=== PATIENT | female | born 1980 | race Caucasian/White ===

== ENCOUNTER 2018-03-25 15:52 | Emergency (ER) | payer BC, SELFPAY ==
[2018-03-25 17:20] LABS: Absolute Lymphocytes (CBC) 1.2 K/uL (0.7-4.9); Absolute Monocytes 0.5 K/uL (0.1-1.3); Absolute Neutrophil 6.8 K/uL (1.8-8.0); Basophils % 0.2 % (0-1.3); Hematocrit 27.8 % (36.0-45.0); Lymphocytes % 13.1 % (15.3-44.8); MPV 8.9 fL (7.6-11.3); Monocytes % 5.5 % (3.3-12.3); RBC Red Blood Cell Count 3.12 M/uL (3.86-4.86)
[2018-03-25] MEDS ORDERED: PANTOPRAZOLE 40 MG INJ ONE (17:22)
[2018-03-25 17:44] LABS: ALT/SGPT 15 U/L (12-78); AST/SGOT 10 U/L (15-37); Albumin 3.1 g/dL (3.4-5.0); Alkaline Phosphatase 56 U/L (45-117); BUN Blood Urea Nitrogen 8 mg/dL (7-18); Bicarbonate 29 mmol/L (21-32); Bilirubin Direct 0.1 mg/dL (0-0.2); Bilirubin Total 0.3 mg/dL (0.2-1.0); Glucose Level 103 mg/dL (74-106); Lipase 66 U/L (73-393); Potassium 4.1 mmol/L (3.5-5.1); Protein, Total 5.9 g/dL (6.4-8.2); Sodium Level 143 mmol/L (136-145)
--- NOTE | 2018-03-25 18:24 | RAD REPORT ---
EXAM DESCRIPTION: CTAbdomen Pelvis W Contrast - 03/25/2018 6:10 pm CLINICAL HISTORY: Abdominal pain. hematemesis, gastric bypass COMPARISON: No comparisons TECHNIQUE: Biphasic CT imaging of the abdomen and pelvis was performed with 100 ml non-ionic IV cont rast. All CT scans are performed using dose optimization technique as appropriate and may include automated exposure control or mA/KV adjustment according to patient size. FINDINGS: The lung bases are clear.Cholecystectomy clips. Mild fatty liver is present. The spleen, pancreas, adrenal glands and kidneys are within normal limit s. Postsurgical changes of gastric bypass noted. No bowel obstruction, free air, free fluid or abscess. Sigmoid diverticulosis without diverticulitis. The appendix is normal. No evidence of significant lymphadenopathy. No suspicious bony findings. IUD is present in the uterus. IMPRESSION: No acute intra-abdominal or pelvic finding.
[2018-03-25 18:30] LABS: Urine Blood NEGATIVE (NEG); Urine Glucose NEGATIVE (NEG); Urine Protein NEGATIVE (NEG); Urine Specific Gravity 1.015 (1.005-1.030)
[2018-03-25] MEDS ORDERED: ONDANSETRON 4 MG/2 ML VIAL ONE (18:59)
[2018-03-25] MEDS ORDERED: Ringers Lactate 1,000 ML IV ONE (18:59)
[2018-03-25] MEDS ORDERED: PROMETHAZINE 25 MG/ML VIAL ONE (19:59)
--- NOTE | 2018-03-25 21:15 | EDPHYS ---
Physician Documentation [facility] Name: Erica Westbrook Age: 37 yrs Sex: Female : 1980 Arrival Date: 03/25/2018 Time: 15:54 Bed 14 Private MD: Tomas Garvin T; Janak Ramírez M ED Physician Omi Jones HPI: 03/25 16:26 This 37 yrs old Female presents to ER via Ambulatory with complaints of jmm Vomiting Blood. 16:26 The patient presents to the emergency department with vomiting. Onset: The jmm symptoms/episode began/occurred just prior to arrival. 16:26 Possible causes: flare up of bowel problem, ulcer. jmm 16:26 Associated signs and symptoms: Pertinent negatives: abdominal pain, shortness of jmm breath. This is a 37 year old female with a history of a yohan en y bypass performed in 2012 presents to the ED with vomiting bright red blood. Similar episode 3 weeks ago and was diagnosed with a gastric ulcer. Patient denies abdominal pain. Denies weakness. Denies diarrhea. Denies dark stools. . 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 - Social history:: Smoking status: Patient/guardian denies using tobacco. - Ebola Screening: : Patient negative for fever greater than or equal to 101.5 degrees Fahrenheit, and additional compatible Ebola Virus Disease symptoms Patient denies exposure to infectious person Patient denies travel to an Ebola-affected area in the 21 days before illness onset No symptoms or risks identified at this time. ROS: 16:26 Constitutional: Negative for fever, chills, and weight loss, Eyes: Negative for injury, jmm pain, redness, and discharge, ENT: Negative for injury, pain, and discharge, Neck: Negative for injury, pain, and swelling, Cardiovascular: Negative for chest pain, palpitations, and edema, Respiratory: Negative for shortness of breath, cough, wheezing, and pleuritic chest pain. 16:26 MS/Extremity: Negative for injury and deformity, Neuro: Negative for headache, weakness, numbness, tingling, and seizure. 16:26 Abdomen/GI: Positive for vomiting. 16:26 All other systems are negative. Exam: 16:26 Constitutional: This is a well developed, well nourished patient who is awake, alert, jmm and in no acute distress. Head/Face: atraumatic. Eyes: EOMI, no conjunctival erythema appreciated ENT: Moist Mucus Membranes Neck: Trachea midline, Supple Chest/axilla: Normal chest wall appearance and motion. Cardiovascular: Regular rate and rhythm. No edema appreciated Respiratory: Normal respirations, no respiratory distress appreciated 16:26 Back: Normal ROM Skin: General appearance color normal MS/ Extremity: Moves all extremities, no obvious deformities appreciated, no edema noted to the lower extremities Neuro: Awake and alert, normal gait Psych: Behavior is normal, Mood is normal, Patient is cooperative and pleasant 16:26 Abdomen/GI: Inspection: abdomen appears normal, Bowel sounds: normal, Palpation: abdomen is soft and non-tender, in all quadrants. Vital Signs: 16:17 BP 117 / 85; Pulse 103; Resp 20; Temp 98.4; Pulse Ox 100% on R/A; Weight 68.04 kg; aj Height 5 ft. 7 in. (170.18 cm); 17:30 BP 122 / 82; Pulse 98; Resp 17; Pulse Ox 99% on R/A; hb 18:25 BP 97 / 62; Pulse 82; Resp 16; Pulse Ox 100% on R/A; Pain 0/10; hb 18:57 BP 106 / 77; Pulse 94; Resp 16; Pulse Ox 99% on R/A; Pain 0/10; hb 19:57 BP 98 / 57; Pulse 82; Resp 16; Pulse Ox 100% on R/A; lp1 21:00 BP 99 / 55; Pulse 88; Resp 16; Pulse Ox 100% on R/A; lp1 21:59 BP 113 / 71; Pulse 78; Resp 16; Temp 98.7(O); Pulse Ox 100% on R/A; lp1 22:30 BP 112 / 67; Pulse 81; Resp 16; Pulse Ox 98% on R/A; lp1 16:17 Body Mass Index 23.49 (68.04 kg, 170.18 cm) aj MDM: 16:26 Patient medically screened. [facility] 19:41 Data reviewed: vital signs, nurses notes. [facility] 21:13 Data reviewed: lab test result(s), radiologic studies, CT scan. Counseling: I had a [facility] detailed discussion with the patient and/or guardian regarding: the historical points, exam findings, and any diagnostic results supporting the discharge/admit diagnosis, lab results, radiology results, the need to transfer to another facility. ED course: I discussed the patient with Dr. Griffiths and ICU actuarial consultant whom accepted admission. . 03/25 16:51 Order name: Basic Metabolic Panel; Complete Time: 18:00 [facility] 03/25 16:51 Order name: CBC with Diff; Complete Time: 18:00 [facility] 03/25 16:51 Order name: Creatinine for Radiology; Complete Time: 18:00 [facility] 03/25 16:51 Order name: Hepatic Function; Complete Time: 18:00 [facility] 03/25 16:51 Order name: Lipase; Complete Time: 18:00 [facility] 03/25 16:51 Order name: Type And Screen; Complete Time: 18:07 [facility] 03/25 16:57 Order name: CT Abd/Pelvis - W/Contrast; Complete Time: 18:41 [facility] 03/25 17:22 Order name: Urine Dipstick--Ancillary (enter results); Complete Time: 18:41 ag 03/25 17:22 Order name: Urine --Ancillary (enter results); Complete Time: 18:41 ag 03/25 16:51 Order name: IV Saline Lock; Complete Time: 17:10 [facility] 03/25 16:51 Order name: Labs collected and sent; Complete Time: 17:10 [facility] 03/25 16:51 Order name: Urine Dipstick-Ancillary (obtain specimen); Complete Time: 17:10 [facility] Administered Medications: 17:25 Drug: ProTONIX 40 mg Route: IVP; Site: right antecubital; ss 18:05 Follow up: Response: No adverse reaction hb 18:55 Drug: Lactated Ringers Solution 1000 ml Route: IV; Rate: 1000 bolus; Site: right hb antecubital; 22:45 Follow up: IV Status: Completed infusion; IV Intake: 1000ml lp1 18:56 Drug: Zofran 4 mg Route: IVP; Site: right antecubital; hb 19:42 Follow up: Response: Nausea is decreased lp1 22:45 Not Given (Patient denies need ): Promethazine 12.5 mg IVP once lp1 Disposition: 03/25/18 21:14 Transfer ordered to [facility]. Diagnosis is Hematemesis. - Reason for transfer: Higher level of care. - Accepting physician is griffiths. - Condition is Stable. - Problem is an acute exacerbation. - Symptoms have improved. Signatures: Dispatcher [employer] EDOH Dyana Rene, Omi Avina RN, MD MD cha Mickail, Joel, PA PA [facility] Mariam Hernandez RN RN ss Sanjana Can RN RN lp1 Ingrid Tang RN RN Corrections: (The following items were deleted from the chart) 17:54 17:54 This 37 yrs old Female presents to ER via Ambulatory with complaints of jmm Vomiting Blood. [facility] 19:01 16:53 Occult Blood+PA.LAB.BRZ ordered. [facility] 22:47 21:14 03/25/2018 21:14 Transfer ordered to [facility]. Diagnosis is lp1 Hematemesis. Reason for transfer: Higher level of care. Accepting physician is griffiths. Condition is Stable. Problem is an acute exacerbation. Symptoms have improved. [facility]
--- NOTE | 2018-03-25 21:15 | ER ---
Nurse's Notes [facility] Name: Erica Westborok Age: 37 yrs Sex: Female : 1980 Arrival Date: 03/25/2018 Time: 15:54 Bed 14 Private MD: Tomas Garvin T; Janak Ramírez M Diagnosis: Hematemesis Presentation: 03/25 16:15 Presenting complaint: Patient states: Vomiting bright red blood for 40 minutes. Patient aj had similar issue 3 weeks ago and had an ulcer cauterized. Transition of care: patient was not received from another setting of care. Onset of symptoms was March 25, 2018. Risk Assessment: Do you want to hurt yourself or someone else? Patient reports no desire to harm self or others. Initial Sepsis Screen: Does the patient meet any 2 criteria? No. Patient's initial sepsis screen is negative. Does the patient have a suspected source of infection? No. Patient's initial sepsis screen is negative. Care prior to arrival: None. 16:15 Method Of Arrival: Ambulatory 16:15 Acuity: RAMSEY 3 Triage Assessment: 16:17 General: Appears in no apparent distress. comfortable, Behavior is calm, cooperative, aj appropriate for age. Pain: Denies pain. Neuro: Level of Consciousness is awake, alert, obeys commands, Oriented to person, place, time, situation, Appropriate for age. Respiratory: Airway is patent Respiratory effort is even, unlabored, Respiratory pattern is regular, symmetrical. GI: Abdomen is flat, Reports vomiting. Derm: Skin is intact, is healthy with good turgor, Skin is pink, warm \T\ dry. normal. 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 - Social history:: Smoking status: Patient/guardian denies using tobacco. - Ebola Screening: : Patient negative for fever greater than or equal to 101.5 degrees Fahrenheit, and additional compatible Ebola Virus Disease symptoms Patient denies exposure to infectious person Patient denies travel to an Ebola-affected area in the 21 days before illness onset No symptoms or risks identified at this time. Screenin:11 Abuse screen: Denies threats or abuse. Denies injuries from another. Nutritional hb screening: No deficits noted. Tuberculosis screening: No symptoms or risk factors identified. Fall Risk None identified. Assessment: 17:10 General: Appears in no apparent distress. Behavior is calm, cooperative. Pain: Denies hb pain. Neuro: Level of Consciousness is awake, alert, obeys commands, Oriented to person, place, time, situation. Cardiovascular: Capillary refill < 3 seconds Patient's skin is warm and dry. Respiratory: Airway is patent Trachea midline Respiratory effort is even, unlabored, Respiratory pattern is regular, symmetrical, Breath sounds are clear bilaterally. GI: Abdomen is flat, Bowel sounds present X 4 quads. Abd is soft and non tender X 4 quads. Reports vomiting, blood. : No signs and/or symptoms were reported regarding the genitourinary system. EENT: No signs and/or symptoms were reported regarding the EENT system. Derm: Skin is intact, is healthy with good turgor, Skin is pale. Musculoskeletal: No signs and/or symptoms reported regarding the musculoskeletal system. 17:23 Reassessment: Pt finished drinking oral contrast, CT notified. ss 18:00 Reassessment: Patient appears in no apparent distress at this time. No changes from hb previously documented assessment. Patient and/or family updated on plan of care and expected duration. Pain level reassessed. Patient is alert, oriented x 3, equal unlabored respirations, skin warm/dry/pink. 18:04 Reassessment: Pt to CT. hb 18:23 Reassessment: Pt returned from CT via wheelchair. NAD. Family at bedside. hb 18:56 Reassessment: Pt vomit bright red blood x 1. KYLER Herndon notified, LR bolus and Zofran hb administered as ordered. VSS. Family remains at bedside. 19:08 Reassessment: Patient appears in no apparent distress at this time. Patient states lp1 nausea improved; family at bedside, aware of pending plan of care. 19:57 Reassessment: Denies nausea at this time; aware of waiting for consult with surgeon. lp1 21:00 Reassessment: Patient appears in no apparent distress at this time. Patient and/or lp1 family updated on plan of care and expected duration. Pain level reassessed. Patient aware of pending transfer; friends at bedside. 22:11 Reassessment: Report called to KAYLEE Vargas at [facility] for patient to be transferred to [address] 3rd floor, Surgical ICU bed 4. 22:43 Reassessment: [facility] Reassessment: Patient denies any nausea at this time. 1 Vital Signs: 16:17 BP 117 / 85; Pulse 103; Resp 20; Temp 98.4; Pulse Ox 100% on R/A; Weight 68.04 kg; aj Height 5 ft. 7 in. (170.18 cm); 17:30 BP 122 / 82; Pulse 98; Resp 17; Pulse Ox 99% on R/A; hb 18:25 BP 97 / 62; Pulse 82; Resp 16; Pulse Ox 100% on R/A; Pain 0/10; hb 18:57 BP 106 / 77; Pulse 94; Resp 16; Pulse Ox 99% on R/A; Pain 0/10; hb 19:57 BP 98 / 57; Pulse 82; Resp 16; Pulse Ox 100% on R/A; lp1 21:00 BP 99 / 55; Pulse 88; Resp 16; Pulse Ox 100% on R/A; lp1 21:59 BP 113 / 71; Pulse 78; Resp 16; Temp 98.7(O); Pulse Ox 100% on R/A; lp1 22:30 BP 112 / 67; Pulse 81; Resp 16; Pulse Ox 98% on R/A; lp1 16:17 Body Mass Index 23.49 (68.04 kg, 170.18 cm) ED Course: 15:54 Patient arrived in ED. as 15:54 Janak Ramírez MD is Private Physician. as 15:55 Tomas Garvin MD is Private Physician. as 16:03 Tamra Jose FNP-C is PHCP. kb 16:03 Omi Jones MD is Attending Physician. kb 16:16 Triage completed. aj 16:17 Arm band placed on right wrist. Patient placed in an exam room. aj 16:25 Yanick Ramos PA is PHCP. [facility] 16:25 Omi Jones MD is Attending Physician. [facility] 17:09 Ingrid Tang, RN is Primary Nurse. hb 17:10 Patient has correct armband on for positive identification. Bed in low position. Call hb light in reach. Side rails up X 1. 17:10 Inserted saline lock: 22 gauge in right antecubital area, using aseptic technique. hb Blood collected. 17:15 Urine collected: clean catch specimen, clear. dh3 18:[address] via wheelchair. nj 18:10 CT Abd/Pelvis - W/Contrast In Process Unspecified. EDMS 21:29 No provider procedures requiring assistance completed. lp1 22:45 Patient transferred, IV remains in place. lp1 Administered Medications: 17:25 Drug: ProTONIX 40 mg Route: IVP; Site: right antecubital; 18:05 Follow up: Response: No adverse reaction hb 18:55 Drug: Lactated Ringers Solution 1000 ml Route: IV; Rate: 1000 bolus; Site: right hb antecubital; 22:45 Follow up: IV Status: Completed infusion; IV Intake: 1000ml lp1 18:56 Drug: Zofran 4 mg Route: IVP; Site: right antecubital; hb 19:42 Follow up: Response: Nausea is decreased lp1 22:45 Not Given (Patient denies need ): Promethazine 12.5 mg IVP once lp1 Intake: 22:45 IV: 1000ml; Total: 1000ml. lp1 Outcome: 21:14 ER care complete, transfer ordered by . [facility] 22:45 Transferred by ground EMS to [facility], Transfer form completed. X-rays lp1 sent w/ patient. 22:45 Condition: stable 22:45 Instructed on the need for transfer. 22:47 Patient left the ED. lp1 Signatures: Dispatcher [employer] EDMS Tamra Jose, ALTERATIONS SEWER-C ALTERATIONS SEWER-Dyana Koch RN RN Yanick Cruz PA PA jmm Martinez, Amelia as Smirch, Shelby, RN RN ss Pena, Laura, RN RN lp1 Ingrid Tang, RN RN Nicola Den[facility]
== END 2018-03-25 22:47 | disposition short-term general hospital (02) ==
LOC: ER 15:52
DX: K92.0 Hematemesis (principal); Z88.6 Allergy status to analgesic agent
CPT/HCPCS: 36415; 74177; 80048; 80076; 81003; 81025; 83690; 85025; 86850; 86900; 86901; C9113; J2405; J2550; Q9967

== ENCOUNTER → 2023-06-07 | Emergency (ER) | payer BC ==
[~2023-06-07] MED LIST: HYDROMORPHONE HCL 1 MG/ML INJ ONE; LORazepam 2 MG/ML VIAL ONE; MORPHINE 4 MG/ML SYR ONE; NA CHLORIDE 0.9% 1,000 ML ONE; NA CHLORIDE 0.9% 100 ML ONE; ONDANSETRON 4 MG/2 ML VIAL ONE; PIPERACIL/TAZO 3.375 GM VIAL IV ONE
[2023-06-07 09:58] LABS: Absolute Basophils 0.1 K/uL (0-0.5); Absolute Eosinophils 0.3 K/uL (0-0.5); Absolute Lymphocytes (CBC) 2.2 K/uL (0.7-4.9); Absolute Monocytes 0.4 K/uL (0.1-1.3); Absolute Neutrophil 2.7 K/uL (1.8-8.0); Hemoglobin 8.7 g/dL (12.0-15.0); MCH 19.9 pg (27.0-35.0); MCHC 31.2 g/dL (32.0-36.0); MCV 63.7 fL (80-100); MPV 7.3 fL (7.6-11.3); Monocytes % 6.9 % (3.3-12.3); Neutrophils % 48.1 % (41.7-73.7); Nucleated Red Blood Cells % 0.2 % (0-0); Platelets 476 thou/uL (152-406); RBC Red Blood Cell Count 4.39 M/uL (3.86-4.86); Red Cell Distribution Width 18.6 % (12.1-15.2)
[2023-06-07 10:23] LABS: Albumin 3.7 g/dL (3.4-5.0); Albumin/Globulin Ratio 1.1 (1.1-1.8); Anion Gap 9.6 mEq/L (5.0-15.0); Bilirubin Direct 0.1 mg/dL (0-0.2); Bilirubin Indirect, Calculated 0.3 mg/dL (0.2-0.8); Bilirubin Total 0.4 mg/dL (0.2-1.0); Globulin 3.3 g/dL (2.3-3.5); Magnesium 1.8 mg/dL (1.6-2.4); Potassium 3.6 mEq/L (3.5-5.1); Thyroid Stimulating Hormone 2.51 uIU/mL (0.358-3.740); Troponin High Sensitivity 3.2 pg/mL (<58.9)
--- NOTE | 2023-06-07 11:02 | RAD REPORT ---
EXAM DESCRIPTION: RAD - Chest Single View - 06/07/2023 10:24 am CLINICAL HISTORY: CHEST PAIN Chest pain. COMPARISON: CHEST SINGLE VIEW dated 07/11/2013 FINDINGS: Portable technique limits examination quality. The lungs are grossly clear. The heart is normal in size. No displaced fractures.Lucency is seen bene ath the diaphragm suggesting free intraperitoneal air. IMPRESSION: Suspected free intraperitoneal air. Recommend CT abdomen/pelvis for further evaluation.
[2023-06-07 11:10] LABS: Anisocytosis 2+; Blood Morphology Comment NOTED (NOT SEEN); Microcytosis 2+; Platelet Estimate INCR; White Blood Cell Scan OK (OK)
[2023-06-07 11:11] LABS: Hypochromasia 1+; Ovalocytes 1+; Teardrop Cell FEW
--- NOTE | 2023-06-07 12:04 | RAD REPORT ---
EXAM DESCRIPTION: CTAbdomen Pelvis W Contrast - 06/07/2023 11:55 am CLINICAL HISTORY: Abdominal pain. CHEST PAIN COMPARISON: Abdomen Pelvis W Contrast dated 03/25/2018 TECHNIQUE: Biphasic CT imaging of the abdomen and pelvis was performed with 100 ml non-ionic IV cont rast. All CT scans are performed using dose optimization technique as appropriate and may include automated exposure control or mA/KV adjustment according to patient size. FINDINGS: The lung bases are clear. Mild pneumoperitoneum is seen. Numerous air bubbles are seen adjacent to the stomach, in the left upp er quadrant, which shows gastric bypass changes. Cholecystectomy also noted. The liver, spleen, pancreas, adrenal glands and kidneys are within normal limits. Small umbilical her ángela. No bowel obstruction, free air, free fluid or abscess. IUD in the uterus. Trace pelvic free fluid. Th e appendix is normal. No evidence of significant lymphadenopathy. No suspicious bony findings. IMPRESSION: Pneumoperitoneum is noted, likely related to perforation involving postsurgical stomach.
--- NOTE | 2023-06-07 12:05 | RAD REPORT ---
EXAM DESCRIPTION: CT - Chest For Pe Angio - 06/07/2023 11:56 am CLINICAL HISTORY: Chest pain. ELEVATED D-DIMER COMPARISON: CTANGIO CHEST dated 07/11/2013 TECHNIQUE: CT angiogram of the pulmonary arteries was performed with MIP. All CT scans are performed using dose optimization technique as appropriate and may include automated exposure control or mA/KV adjustment according to patient size. FINDINGS: No evidence of pulmonary thromboembolism. No acute aortic finding demonstrated. The lungs are clear. No significant pericardial or pleural fluid. No concerning bony finding. Pneumoperitoneum is present, fully detailed on dedicated CT abdomen. IMPRESSION: No evidence of pulmonary thromboembolism. No acute lung findings. Pneumoperitoneum.
--- NOTE | 2023-06-07 12:13 | ER ---
Nurse's Notes [facility] Name: Erica Westbrook Age: 42 yrs Sex: Female : 1980 Arrival Date: 06/07/2023 Time: 09:36 Bed 7 Private MD: Diagnosis: Pneumoperitoneum Presentation: 06/06 10:03 Chief complaint: Patient states: L arm pain radiates towards neck since yesterday ld1 evening. CP level 6/10. Coronavirus screen: At this time, the client does not indicate any symptoms associated with coronavirus-19. Ebola Screen: No symptoms or risks identified at this time. Initial Sepsis Screen: Does the patient meet any 2 criteria? No. Patient's initial sepsis screen is negative. Does the patient have a suspected source of infection? No. Patient's initial sepsis screen is negative. Risk Assessment: Do you want to hurt yourself or someone else? Patient reports no desire to harm self or others. Onset of symptoms was June 07, 2023. 10:03 Method Of Arrival: Ambulatory ld1 10:03 Acuity: RAMSEY 3 ld1 Triage Assessment: 10:03 General: Appears in no apparent distress. comfortable, Behavior is calm, cooperative, ld1 appropriate for age. Pain: Complains of pain in chest Pain does not radiate. Pain currently is 6 out of 10 on a pain scale. Quality of pain is described as throbbing, Pain began 1 day ago. Is continuous. EENT: No signs and/or symptoms were reported regarding the EENT system. Neuro: Level of Consciousness is awake, alert, obeys commands, Oriented to person, place, time, situation. Cardiovascular: Capillary refill < 3 seconds Patient's skin is warm and dry. Respiratory: Reports shortness of breath at rest on exertion Airway is patent Respiratory effort is even, unlabored, Onset: The symptoms/episode began/occurred gradually, the patient has moderate shortness of breath. GI: Abdomen is flat, non-distended. : No signs and/or symptoms were reported regarding the genitourinary system. Derm: No signs and/or symptoms reported regarding the dermatologic system. Musculoskeletal: No signs and/or symptoms reported regarding the musculoskeletal system. Historical: - Allergies: 09:40 NSAIDS; ld1 - PMHx: 09:40 Back pain; ld1 - PSHx: 12:15 gastric bypass; Cholecystectomy; sb4 - Immunization history:: Adult Immunizations up to date. - Social history:: Smoking status: . Screenin:09 [facility] ED Fall Risk Assessment (Adult) History of falling in the last 3 months, ld1 including since admission No falls in past 3 months (0 pts). Abuse screen: Denies threats or abuse. Denies injuries from another. Nutritional screening: No deficits noted. Tuberculosis screening: No symptoms or risk factors identified. Assessment: 10:09 Reassessment: See triage assessment. Cardiovascular: Capillary refill < 3 seconds ld1 Patient's skin is warm and dry. Rhythm is sinus rhythm. Respiratory: Airway is patent Respiratory effort is even, unlabored, Breath sounds are clear bilaterally. 11:32 Reassessment: Pt c/o pain to left arm. Notified ERP. ld1 11:50 Reassessment: No changes from previously documented assessment. Pt C/O pain worsening. ld1 Notified ERP. See [facility] for orders. Patient states symptoms have not improved. 12:22 Reassessment: ERP at bedside discussing results and transfer needs with pt. ld1 Vital Signs: 10:03 BP 131 / 83; Pulse 91; Resp 18; Temp 97.6(TE); Pulse Ox 100% on R/A; Weight 76.66 kg; ld1 Height 5 ft. 6 in. ; Pain 6/10; 10:49 BP 121 / 66; Pulse 73; Resp 18; Pulse Ox 100% on R/A; ld1 11:31 BP 122 / 70; Pulse 93; Resp 18; Pulse Ox 100% ; Pain 9/10; ld1 12:22 BP 138 / 86; Pulse 101; Resp 18; Pulse Ox 100% on R/A; Pain 8/10; ld1 10:03 Body Mass Index 27.28 (76.66 kg, 167.64 cm) ld1 10:03 Pain Scale: Adult ld1 11:31 Pain Scale: Adult ld1 12:22 Pain Scale: Adult ld1 ED Course: 08:58 EKG done, by ED staff, reviewed by Archana Oconnor PA-C. hb 09:38 Patient arrived in ED. mg5 09:39 Archana Oconnor PA-C is PHCP. sb4 09:39 Britni Salmeron MD is Attending Physician. sb4 09:39 Janie English, KAYLEE is Primary Nurse. ld1 10:03 Arm band placed on right wrist. ld1 10:06 Triage completed. ld1 10:09 Patient has correct armband on for positive identification. Placed in gown. Bed in low ld1 position. Call light in reach. Side rails up X2. site monitor on. Pulse ox on. NIBP on. Door closed. Noise minimized. Warm blanket given. 10:09 No provider procedures requiring assistance completed. Inserted saline lock: 20 gauge ld1 in right antecubital area, using aseptic technique. Blood collected. 10:26 XRAY Chest (1 view) In Process Unspecified. EDMS 10:40 Lab(s) recollected, by me, sent to lab. mc5 11:57 Abdomen In Process Unspecified. EDMS 11:58 Chest For Pe Angio In Process Unspecified. EDMS 12:11 initiated a transfer with Charlotte from the [facility] transfer [place] at the request of eb the patient. 12:20 per Charlotte patient has been denied at [facility] due to capacity/. eb 12:23 initiated a transfer with Mary from the [facility]. eb 12:37 connected the General Surgeon supervisor of communications for [facility] with Archana Johnson for patient eb transfer consultation. 12:45 connected the hospitalist supervisor of communications for [facility] with Archana JOHNSON for patient eb transfer consultation. 12:47 administrative approval given by Mary Qiu Rn/ patient has been accepted to [facility] [address]/ Dr. Torin Hills has accepted the patient in transfer/ report to be called to [phone]. 12:53 called [facility] for transfer ERA 45 min to and [facility] unavailable. eb 14:53 Provided Education on: need for transfer. ld1 14:53 Patient transferred, IV remains in place. ld1 Administered Medications: 10:02 Drug: morphine IVP or IV 4 mg IVP once over 4 mins Route: IVP; Infused Over: 4 mins; ld1 Site: right antecubital; 10:02 Drug: Ondansetron IVP 4 mg IVP once; over 2 minutes Route: IVP; Site: right antecubital;ld1 11:31 Drug: HYDROmorphone IVP 1 mg IVP once Route: IVP; Site: right antecubital; ld1 12:21 Drug: Ativan IVP 1 mg IVP once Route: IVP; Site: right antecubital; ld1 12:21 Drug: NS 0.9% IV 1000 ml IV at 1 bolus Per protocol; 1000 mL bolus Route: IV; Rate: 1 ld1 bolus; Site: right antecubital; 13:20 Drug: Piperacillin-Tazobactam IVPB 3.375 grams IVPB once over 60 mins; (mix in NS 100 ld1 mL) Route: IVPB; Infused Over: 60 mins; Site: right antecubital; Medication: 10:09 VIS not applicable for this client. ld1 Outcome: 12:12 ER care complete, transfer ordered by . sb4 14:52 Patient left the ED. ld1 14:52 Transferred by ground EMS to [facility] 14:52 Condition: unchanged 14:52 Discharge instructions given to patient, Instructed on discharge instructions, follow up and referral plans. Demonstrated understanding of instructions, follow-up care, Signatures: Dispatcher [employer] EDMS Ingrid Tang RN RN Angie Mario Lauren, RN RN ld1 Archana Oconnor PA-C PANelda shields4 Chapis Parker mc Amy Knight 5
--- NOTE | 2023-06-07 12:13 | EDPHYS ---
Physician Documentation [facility] Name: Erica Westbrook Age: 42 yrs Sex: Female : 1980 Arrival Date: 06/07/2023 Time: 09:36 Bed 7 Private MD: ED Physician Britni Salmeron HPI: 06/06 09:49 This 42 yrs old Female presents to ER via Unassigned with complaints of Shortness Of sb4 Breath, Chest Pain. 09:49 Patient reports left-sided flank pain that began 2 days ago. She thought that she had sb4 initially just pulled a muscle, but the pain has spread to her left chest and left arm. She also endorses shortness of breath. She states the symptoms are constant, there is no pattern to them, just that they have been worsening over the past few days. She denies any cardiac history. She does not smoke. Did recently travel to the [facility], returned 4 days ago. Historical: - Allergies: 09:40 NSAIDS; ld1 - PMHx: 09:40 Back pain; ld1 - PSHx: 12:15 gastric bypass; Cholecystectomy; sb4 - Immunization history:: Adult Immunizations up to date. - Social history:: Smoking status: . ROS: 09:49 Constitutional: Negative for fever, chills, and weight loss, sb4 09:49 Cardiovascular: Positive for chest pain, 09:49 Respiratory: Positive for shortness of breath, 09:49 All other systems are negative, Exam: 09:49 Head/Face: Normocephalic, atraumatic. Eyes: Extra-ocular motions intact. Periorbital sb4 areas with no swelling, redness, or edema. ENT: Mucous membranes moist. Cardiovascular: Regular rate and rhythm with a normal S1 and S2. Respiratory: Lungs have equal breath sounds bilaterally, clear to auscultation and percussion. No rales, rhonchi or wheezes noted. No increased work of breathing, no retractions or nasal flaring. Abdomen/GI: Soft, non-tender, no distension. Skin: Warm, dry with normal turgor. Normal color with no rashes, no lesions, and no evidence of cellulitis. MS/ Extremity: Pulses equal, no cyanosis. Neurovascular intact. Full, normal range of motion. Neuro: Awake and alert, GCS 15, oriented to person, place, time, and situation. Motor strength 5/5 in all extremities. Sensory grossly intact. 09:49 Constitutional: The patient appears alert, awake, uncomfortable, Vital Signs: 10:03 BP 131 / 83; Pulse 91; Resp 18; Temp 97.6(TE); Pulse Ox 100% on R/A; Weight 76.66 kg; ld1 Height 5 ft. 6 in. ; Pain 6/10; 10:49 BP 121 / 66; Pulse 73; Resp 18; Pulse Ox 100% on R/A; ld1 11:31 BP 122 / 70; Pulse 93; Resp 18; Pulse Ox 100% ; Pain 9/10; ld1 12:22 BP 138 / 86; Pulse 101; Resp 18; Pulse Ox 100% on R/A; Pain 8/10; ld1 10:03 Body Mass Index 27.28 (76.66 kg, 167.64 cm) ld1 10:03 Pain Scale: Adult ld1 11:31 Pain Scale: Adult ld1 12:22 Pain Scale: Adult ld1 MDM: 09:39 Patient medically screened. sb4 12:12 Data reviewed: vital signs, nurses notes, lab test result(s), radiologic studies. 4 Counseling: I had a detailed discussion with the patient and/or guardian regarding the historical points, exam findings, and any diagnostic results supporting the discharge/admit diagnosis, lab results, radiology results, the need to transfer to another facility, for higher level of care, [facility] does not immediately have the required specialist. 12:14 ED course: patient and family request transfer to [facility] as her gastric bypass was sb4 done there 10 years ago. additionally, she was treated there 5 years ago with a perforated ulcer . 12:32 ED course: [facility] at [facility], will try [facility]. sb4 12:39 ED course: spoke with general surgeon at [facility], agrees to consult. sb4 13:44 Management of patient was discussed with the following: Hospitalist: hospitalist at [address], Dr[address] Hills, accepts patient. 06/06 09:46 Order name: Basic Metabolic Panel; Complete Time: 10:24 [facility] 06/06 09:46 Order name: CBC with Diff; Complete Time: 11:22 [facility] 06/06 09:46 Order name: D-Dimer; Complete Time: 11:22 sb4 06/06 09:46 Order name: LFT's; Complete Time: 10:24 sb4 06/06 09:46 Order name: Magnesium; Complete Time: 10:24 sb4 06/06 09:46 Order name: NT PRO-BNP; Complete Time: 10:24 sb4 06/06 09:46 Order name: Troponin HS; Complete Time: 10:24 sb4 06/06 09:46 Order name: TSH; Complete Time: 10:24 sb4 06/06 11:11 Order name: CBC Smear Scan; Complete Time: 11:22 EDMS 06/06 12:11 Order name: Blood Culture Adult (2) sb4 06/06 12:11 Order name: Lactate w/ 2H reflex if indic.; Complete Time: 12:50 sb4 06/06 09:46 Order name: XRAY Chest (1 view); Complete Time: 11:03 sb4 06/06 11:26 Order name: Abdomen ; Complete Time: 12:06 EDMS 06/06 11:28 Order name: Chest For Pe Angio; Complete Time: 12:06 EDMS 06/06 09:46 Order name: EKG; Complete Time: 09:47 sb4 06/06 09:46 Order name: Cardiac monitoring; Complete Time: 10:03 sb4 06/06 09:46 Order name: EKG - Nurse/Tech; Complete Time: 10:03 sb4 06/06 09:46 Order name: IV Saline Lock; Complete Time: 10:03 sb4 06/06 09:46 Order name: Labs collected and sent; Complete Time: 10:03 sb4 06/06 09:46 Order name: O2 Per Protocol; Complete Time: 10:02 sb4 06/06 09:46 Order name: O2 Sat Monitoring; Complete Time: 10:03 sb4 06/06 10:09 Order name: Labs - recollect needed: recollect blue top/ hemolyzed per Brittney; eb Complete Time: 10:40 EC:02 Rate is 97 beats/min. Rhythm is regular, Normal Sinus Rhythm. CT interval is normal at sb4 184 msec. QRS interval is normal at 82 msec. QT interval is normal at 370 msec. No Q waves. T waves are Normal. No ST changes noted. Clinical impression: Normal ECG. Interpreted by me. Reviewed by me. Administered Medications: 10:02 Drug: morphine IVP or IV 4 mg IVP once over 4 mins Route: IVP; Infused Over: 4 mins; ld1 Site: right antecubital; 10:02 Drug: Ondansetron IVP 4 mg IVP once; over 2 minutes Route: IVP; Site: right antecubital;ld1 11:31 Drug: HYDROmorphone IVP 1 mg IVP once Route: IVP; Site: right antecubital; ld1 12:21 Drug: Ativan IVP 1 mg IVP once Route: IVP; Site: right antecubital; ld1 12:21 Drug: NS 0.9% IV 1000 ml IV at 1 bolus Per protocol; 1000 mL bolus Route: IV; Rate: 1 ld1 bolus; Site: right antecubital; 13:20 Drug: Piperacillin-Tazobactam IVPB 3.375 grams IVPB once over 60 mins; (mix in NS 100 ld1 mL) Route: IVPB; Infused Over: 60 mins; Site: right antecubital; Disposition: 19:14 Co-signature as Attending Physician, Britni Salmeron MD I agree with the assessment and cp3 plan of care. Disposition Summary: 06/07/23 12:12 Transfer Ordered Notes: Reason: Higher level of care sb4 Condition: Serious sb4 Problem: new sb4 Symptoms: are unchanged sb4 Transfer Location: [facility](06/07/23 13:52) eb Accepting Physician: Dr. Torin Hills(06/07/23 14:52) ld1 Diagnosis - Pneumoperitoneum sb4 Forms: - Medication Reconciliation Form sb4 - SBAR form sb4 Signatures: Dispatcher [employer] Britni Garcia MD MD cp3 Angie Vang eb Janie English RN RN ld1 Archana Oconnor PA-C PA-C sb4 Corrections: (The following items were deleted from the chart) 11:26 11:04 Chest Abdomen Pelvis W Con+CT.RAD.BRZ ordered. EDMS EDMS 12:49 12:12 surgery sb4 sb4 13:52 12:12 [facility] sb4 eb 13:52 12:49 Dr. Torin Hills sb4 eb 14:31 11:24 Test, Urine+UC.LAB.BRZ ordered. EDMS EDMS 14:52 13:52 Dr. Torin Hills eb ld1
[2023-06-07 15:03] VITALS: TEMP 97.6; O2SAT 100
[2023-06-07 15:31] VITALS: BP 138/86
--- NOTE | 2023-06-10 14:14 | EKG ---
Test Date: 2023-06-07 Test Time: 08:58:29 Medicaid Eligibility Specialist: Tima NATHAN MEASUREMENT RESULTS: Intervals: Rate: 97 NE: 184 QRSD: 82 QT: 370 QTc: 469 [place]: P: 77 NE: 184 QRS: 68 T: 62 INTERPRETIVE STATEMENTS: Normal sinus rhythm Normal ECG Compared to ECG 07/11/2013 18:00:43 No significant changes Electronically Signed On 06-10-23 14:07:48 CDT by Amish Glez
== END ==
LOC: ER 09:36
DX: K66.8 Other specified disorders of peritoneum (principal); Z88.6 Allergy status to analgesic agent
CPT/HCPCS: 93005; 87040 ×2; 85025; 80048; 36415; 83735; 87205; 85379; 80076; 83605; 84443; 84484; 83880; 71275; 74177; 71045; 96375; 96374; 99285; Q9967; J2543; J1170; J2405; J7030

== ENCOUNTER → 2023-06-16 | Emergency (ER) | payer BC ==
--- NOTE | 2023-06-16 18:10 | RAD REPORT ---
EXAM DESCRIPTION: US - UPPER EXTREMITY VENOUS UNILATE - 06/16/2023 5:48 pm CLINICAL HISTORY: left arm swelling. COMPARISON: None. FINDINGS: Echogenic material within the left brachiocephalic vein. The vein is noncompressible. Additional thrombus within a superficial vein left forearm Left internal jugular vein, left subclavian vein, left axillary vein, left cephalic, left basilic, le ft ulnar and left radial veins demonstrate phasic signal. The veins are compressible. Doppler demonstrates good flow. Grayscale, color and spectral analysis performed on all vessels IMPRESSION: Acute thrombus left brachial vein Acute thrombus superficial vein of the left forearm
--- NOTE | 2023-06-16 18:29 | EDPHYS ---
Physician Documentation [facility] Name: Erica Westbrook Age: 42 yrs Sex: Female : 1980 Arrival Date: 06/16/2023 Time: 16:47 Bed 7 Private MD: ED Physician Tj English HPI: 06/15 16:55 This 42 yrs old Female presents to ER via Unassigned with complaints of Arm swelling. kb 16:57 Pt is a 42 year old female who presents for redness, swelling and tenderness that kb started in left forearm today. States she developed a clot while at [employer] last week in the right arm so she is concerned that she developed one in left arm. Started on xarelto last week. Historical: - Allergies: 16:58 NSAIDS; mb9 - Home Meds: 16:58 Xarelto oral [Active]; mb9 - PMHx: 16:58 Back pain; perforated bowel; mb9 - PSHx: 16:58 Cholecystectomy; Gastric Bypass; mb9 - Immunization history:: Adult Immunizations up to date. - Social history:: Smoking status: Patient denies any tobacco usage or history of. ROS: 16:56 Constitutional: As per HPI kb Exam: 16:56 Constitutional: This is a well developed, well nourished patient who is awake, alert, kb and in no acute distress. Head/Face: Normocephalic, atraumatic. ENT: Moist Mucous membranes Cardiovascular: Regular rate Respiratory: Respirations even and unlabored. No increased work of breathing. Talking in full sentences Abdomen/GI: Soft, non-tender. No distention Skin: Warm, dry with normal turgor. Normal color. Neuro: Awake and alert, GCS 15, oriented to person, place, time, and situation. Moves all extremities. Normal gait. 16:56 Musculoskeletal/extremity: Extremities: grossly normal except: noted in the left forearm: erythema, pain, swelling, tenderness, ROM: intact in all extremities, Circulation is intact in all extremities. Sensation intact. Vital Signs: 16:56 BP 136 / 82; Pulse 84; Resp 18; Temp 97.8; Pulse Ox 100% on R/A; Weight 90.72 kg; mb9 Height 5 ft. 6 in. ; 18:30 BP 135 / 79; Pulse 81; Resp 16; Pulse Ox 99% ; bp 16:56 Body Mass Index 32.28 (90.72 kg, 167.64 cm) mb9 MDM: 16:50 Patient medically screened. kb 17:00 Differential diagnosis: abscess, dvt, superficial thrombus. Data reviewed: vital signs, kb nurses notes. 18:27 Counseling: I had a detailed discussion with the patient and/or guardian regarding the kb historical points, exam findings, and any diagnostic results supporting the discharge/admit diagnosis, radiology results, the need for outpatient follow up, track maintainer, to return to the emergency department if symptoms worsen or persist or if there are any questions or concerns that arise at home. ED course: Pt educated on US findings. Educated to take xarelto as prescribed and use warm compresses for superficial thrombus. Pt will see her track maintainer this week.. 06/15 17:15 Order name: UPPER EXTREMITY VENOUS UNILATE; Complete Time: 18:19 EDMS Administered Medications: No medications were administered Disposition: 17:11 I was immediately available on-site in the Emergency Department for consultation in the ms3 care of the patient. Disposition Summary: 06/16/23 18:28 Discharge Ordered Notes: Location: Home kb Condition: Stable kb Diagnosis - Acute embolism and thrombosis of deep veins of left upper extremity kb - Phlebitis and thrombophlebitis of unspecified site - left forearm kb Followup: kb - With: Emergency Department - When: As needed - Reason: Worsening of condition Followup: kb - With: Private Physician - When: 2 - 3 days - Reason: Recheck today's complaints, Continuance of care, Re-evaluation by your physician Discharge Instructions: - Discharge Summary Sheet kb - Deep Vein Thrombosis kb - Thrombophlebitis kb Forms: - Medication Reconciliation Form kb - Thank You Letter kb - Antibiotic Education kb - Prescription Opioid Use kb - Patient Portal Instructions kb - Leadership Thank You Letter kb Signatures: Dispatcher [employer] EDMS Tamra Jose, SANGITA-Geovanni HILARIOP-Tj Darnell DO DO ms3 Sonam Steele, RN RN mb9 Corrections: (The following items were deleted from the chart) 17:15 16:56 Extremity Venous Uni Ltd+US.RAD.BRZ ordered. EDMS EDMS
--- NOTE | 2023-06-16 18:29 | ER ---
Nurse's Notes [facility] Name: Erica Westbrook Age: 42 yrs Sex: Female : 1980 Arrival Date: 06/16/2023 Time: 16:47 Bed 7 Private MD: Diagnosis: Acute embolism and thrombosis of deep veins of left upper extremity;Phlebitis and thrombophlebitis of unspecified site-left forearm Presentation: 06/15 16:56 Chief complaint: Patient states: "I'm currently being treated for a blood blot in my mb9 right arm. Today around noon, I started having redness, throbbing, and swelling to my left arm and need to rule out a clot. I'm taking Xarelto". Coronavirus screen: Vaccine status: Patient reports receiving the 2nd dose of the covid vaccine. Ebola Screen: No symptoms or risks identified at this time. Initial Sepsis Screen: Does the patient meet any 2 criteria? No. Patient's initial sepsis screen is negative. Does the patient have a suspected source of infection? No. Patient's initial sepsis screen is negative. Risk Assessment: Do you want to hurt yourself or someone else? Patient reports no desire to harm self or others. Onset of symptoms was June 16, 2023. 16:56 Acuity: RAMSEY 3 mb9 16:56 Method Of Arrival: Ambulatory 9 Triage Assessment: 17:00 General: Appears uncomfortable, Behavior is calm, cooperative, appropriate for age. bp Pain: Complains of pain in left arm and left forearm. Historical: - Allergies: 16:58 NSAIDS; mb9 - Home Meds: 16:58 Xarelto oral [Active]; mb9 - PMHx: 16:58 Back pain; perforated bowel; mb9 - PSHx: 16:58 Cholecystectomy; Gastric Bypass; mb9 - Immunization history:: Adult Immunizations up to date. - Social history:: Smoking status: Patient denies any tobacco usage or history of. Screenin:00 [facility] ED Fall Risk Assessment (Adult) History of falling in the last 3 months, ko1 including since admission No falls in past 3 months (0 pts) Confusion or Disorientation No (0 pts) Intoxicated or Sedated No (0 pts) Impaired Gait No (0 pts) Mobility Assist Device Used No (0 pt) Altered Elimination No (0 pt) Score/Fall Risk Level 0 - 2 = Low Risk Oriented to surroundings, Maintained a safe environment, Educated pt \\T\\ family on fall prevention, incl call for assistance when getting out of bed, Assessed \\T\\ reinforced patient's understanding of fall precautions, Provided non-skid footwear, Hourly rounding (assess needs \\T\\ fall precautionary measures) done, Used ambulatory aids as needed (educated on \\T\\ assisted with), Used gait belt as appropriate. Abuse screen: Denies threats or abuse. Denies injuries from another. Nutritional screening: No deficits noted. Tuberculosis screening: No symptoms or risk factors identified. Assessment: 17:00 General: Appears in no apparent distress. uncomfortable, Behavior is calm, cooperative, ko1 appropriate for age. Pain: Complains of pain in left arm. Neuro: No deficits noted. Cardiovascular: No deficits noted. Respiratory: No deficits noted. GI: No deficits noted. : No deficits noted. EENT: No deficits noted. Derm: No deficits noted. Musculoskeletal: Swelling present in left arm. 18:00 Reassessment: No changes from previously documented assessment. Patient is alert, bp oriented x 3, equal unlabored respirations, skin warm/dry/pink. Vital Signs: 16:56 BP 136 / 82; Pulse 84; Resp 18; Temp 97.8; Pulse Ox 100% on R/A; Weight 90.72 kg; mb9 Height 5 ft. 6 in. ; 18:30 BP 135 / 79; Pulse 81; Resp 16; Pulse Ox 99% ; bp 16:56 Body Mass Index 32.28 (90.72 kg, 167.64 cm) mb9 ED Course: 16:49 Patient arrived in ED. im 16:50 Tamra Jose FNP-C is PHCP. kb 16:50 Tj English DO is Attending Physician. kb 16:53 Gloria De La Torre, KAYLEE is Primary Nurse. ko1 16:56 Arm band placed on. mb9 16:58 Triage completed. mb9 17:00 Patient has correct armband on for positive identification. Allergy band placed. Bed in ko1 low position. Call light in reach. Side rails up X 1. Pulse ox on. NIBP on. Door closed. Noise minimized. Lights dimmed. Warm blanket given. 17:50 UPPER EXTREMITY VENOUS UNILATE In Process Unspecified. EDMS 18:54 Provided Education on: NA. bp 18:54 No provider procedures requiring assistance completed. Patient did not have IV access bp during this emergency room visit. Administered Medications: No medications were administered Medication: 18:54 VIS not applicable for this client. bp Outcome: 18:28 Discharge ordered by . sebastien 18:54 Discharged to home ambulatory, bp 18:54 Condition: stable 18:54 Discharge instructions given to patient, Instructed on discharge instructions, follow up and referral plans. Demonstrated understanding of instructions, follow-up care, 18:54 Patient left the ED. bp Signatures: Dispatcher [employer] EDMI Tamra Jose, DELI/BAKERY ASSOCIATE-C DELI/BAKERY ASSOCIATE-Vivek Multani, RN RN bp Gloria De La Torre, RN RN Sonam Penaloza, RN RN mb9 Disha Gee
[2023-06-16 20:09] VITALS: BP 135/79; TEMP 97.8; O2SAT 99
== END ==
LOC: ER 16:47
DX: I82.622 Acute embolism and thrombosis of deep veins of left upper extremity (principal); I80.8 Phlebitis and thrombophlebitis of other sites; Z88.6 Allergy status to analgesic agent; Z79.01 Long term (current) use of anticoagulants
CPT/HCPCS: 93971; 99283